=== PATIENT | female | born 2000 | race Two or more races ===

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

== ENCOUNTER 2021-03-14 15:36 | Emergency (ER) | payer MEDICAID ==
[2021-03-14 15:46] VITALS: BP 104/61
[2021-03-14 16:11] LABS: BILIRUBIN,URINE NEGATIVE (NEGATIVE); GLUCOSE, URINE (UA) NEGATIVE (NEGATIVE); KETONES,URINE (UA) NEGATIVE (NEGATIVE); LEUKOCYTE ESTERASE, URINE NEGATIVE (NEGATIVE); NITRITE,URINE NEGATIVE (NEGATIVE); OCCULT BLOOD,URINE LARGE (NEGATIVE); PROTEIN,URINE TRACE mg/dL (NEGATIVE); UROBILINOGEN,URINE 0.2 (NORMAL) E.U./dL (NORMAL)
[2021-03-14 16:14] LABS: CLARITY,URINE CLOUDY (CLEAR); HCG UR QUAL NEGATIVE
[2021-03-14 16:22] LABS: BACTERIA,URINE Rare /HPF (None Seen); EPITHELIAL CELLS,UR RARE Transitional /HPF (<= Few); MUCUS,URINE Few Strands; RBC,URINE TNTC /HPF (0-5); SQUAMOUS EPITHELIAL CELL,UR RARE Squamous (<= Few); WBC,URINE 0-3 /HPF (0-5)
--- NOTE | 2021-03-14 16:30 | ED Physician Documentation ---
History of Present Illness - Stated complaint Stated Complaint: FEMALE - Chief complaint Chief Complaint: Abd Pain - History obtained from History obtained from: Patient, Family (significant other) - Additonal information Additional information: 19-year-old woman presents for evaluation of heavy menstrual bleeding. Patient states that she has a Nexplanon and did not have her period for a year, then started to get it over the past year regularly light. Was once monthly lasting 4 to 7 days. She had her menses about a week ago and then it stopped, with only some mild spotting. She did a clotrimazole treatment for yeast infection which resolved, then began again to have menstrual bleeding that is heavier than usual". Also with mild dysuria but no increased frequency or hematuria. Denies fevers or back pain. Does have mild abdominal cramping consistent with menstrual pain. Review of Systems Constitutional: denies: Fever, Chills GI: reports: Abdominal Pain. denies: Nausea : reports: Dysuria. denies: Frequency Musculoskeletal: denies: Back pain PD PAST MEDICAL HISTORY - Past Medical History Past Medical History: Yes Cardiovascular: None Respiratory: Asthma Neuro: None Endocrine/Autoimmune: None GI: None [employer]INTE[employer]CE [employer]: None : None HEENT: None Psych: Depression, Anxiety, Panic attacks Musculoskeletal: None Derm: Eczema - Past Surgical History Past Surgical History: No - Present Medications Home Medications: Ambulatory Orders Medication Instructions Recorded Confirmed Etonogestrel [Nexplanon] 68 mg SQ ONCE 03/14/21 03/14/21 - Allergies Allergies/Adverse Reactions: Allergies Allergy/AdvReac Type Severity Reaction Status Date / Time No Known Drug Allergies Allergy Verified 03/14/21 15:38 - Social History Does the pt smoke?: No Smoking Status: Never smoker Does the pt drink ETOH?: Yes ETOH Use: Liquor Does the pt have substance abuse?: Yes Substance Use and Type: Marijuana - Immunizations Immunizations are current?: Yes PD ED PE NORMAL - Vitals Vital signs reviewed: Yes - General General: Alert and oriented X 3, No acute distress, Well developed/nourished - HEENT HEENT: Atraumatic, PERRL, EOMI - Neck Neck: Supple, no meningeal sign - Cardiac Cardiac: RRR - Respiratory Respiratory: No respiratory distress, Clear bilaterally - Abdomen Abdomen: Non tender, Non distended - Back Back: No CVA TTP - Derm Derm: Normal color, Warm and dry - Extremities Extremities: No deformity - Neuro Neuro: Alert and oriented X 3 - Psych Psych: Normal mood, Normal affect Results - Vitals Vitals: Vital Signs - 24 hr 03/14/21 15:41 Temperature 36.8 C Heart Rate 88 Respiratory 16 Rate Blood Pressure 104/61 O2 Saturation 98 Oxygen O2 Source Room air - Labs Labs: Laboratory Tests 03/14/21 16:00 Urine Color YELLOW Urine Clarity CLOUDY Urine pH 6.0 Ur Specific [place] 1.025 Urine Protein TRACE Urine Glucose (UA) NEGATIVE Urine Ketones NEGATIVE Urine Occult Blood LARGE H Urine Nitrite NEGATIVE Urine Bilirubin NEGATIVE Urine Urobilinogen 0.2 (NORMAL) Ur Leukocyte Esterase NEGATIVE Urine RBC TNTC H Urine WBC 0-3 Ur Epithelial Cells RARE Transitional Ur Squamous Epith Cells RARE Squamous Urine Bacteria Rare Urine Mucus Few Strands Ur Microscopic Review INDICATED Urine HCG, Qual NEGATIVE PD MEDICAL DECISION MAKING - ED course ED course: 20-year-old presents for evaluation of heavy menstrual.. Urinalysis and test negative. Patient reassured. She declined pelvic exam and would like to follow-up with OB. Return precautions given. Departure - Departure Disposition: 01 Home, Self Care Clinical Impression: Heavy menses Condition: Good Instructions: ED Bleeding Menstrual Heavy Follow-Up: Marley Sharp MD [Provider Admit Priv/Credential] - Comments: You were seen in the emergency department for evaluation of heavy menstrual bleeding. Your urine test showed no infection and you are not . Please follow-up with [facility]. Return to the emergency department if you have any new or worsening symptoms or other concerns.
== END 2021-03-14 16:31 | disposition home or self-care (01) ==
LOC: ED 15:36
DX: N92.0 Excessive and frequent menstruation with regular cycle (principal)
CPT/HCPCS: 81001; 81003; 81025; 99283; 99284

== ENCOUNTER 2022-10-20 17:54 | Emergency (ER) | payer MEDICAID ==
[2022-10-20 18:02] VITALS: BP 105/57
[2022-10-20] MEDS ORDERED: CHERRY SYRUP 10 ML UDC PO ONE (18:20)
[2022-10-20] MEDS ORDERED: DEXAMETHASONE 10 MG/ML VIAL PO STA (18:20)
--- NOTE | 2022-10-20 18:20 | ED Physician Documentation ---
History of Present Illness - Stated complaint Stated Complaint: FEVER,CHILLS,THROAT PX - Chief complaint Chief Complaint: Fever - Additonal information Additional information: 22-year-old female presents emergency department for evaluation of headache body aches chills low-grade temperature elevations as well as sore throat. Symptoms began 2 days ago. She feels like this is tonsillitis as she has had similar in the past. Denies possibility of . Reports that her partner was sick with similar but tested negative for strep and COVID. Review of Systems Constitutional: reports: Fever, Chills, Myalgias, Fatigue Throat: reports: Sore throat Cardiac: reports: Reviewed and negative Respiratory: reports: Reviewed and negative GI: reports: Reviewed and negative Neurologic: reports: Headache PD PAST MEDICAL HISTORY - Past Medical History Past Medical History: Yes Cardiovascular: None Respiratory: Asthma Neuro: None Endocrine/Autoimmune: None GI: None MOUNTED POLICE: None : None HEENT: None Psych: Depression, Anxiety, Panic attacks Musculoskeletal: None Derm: Eczema - Past Surgical History Past Surgical History: No - Present Medications Home Medications: Ambulatory Orders Medication Instructions Recorded Confirmed Penicillin Vk 500 mg PO BID 10 Days #20 tablet 10/20/22 - Allergies Allergies/Adverse Reactions: Allergies Allergy/AdvReac Type Severity Reaction Status Date / Time No Known Drug Allergies Allergy Verified 10/20/22 18:15 - Social History Does the pt smoke?: No Smoking Status: Never smoker Does the pt drink ETOH?: Yes Does the pt have substance abuse?: Yes - Immunizations Immunizations are current?: Yes - POLST Patient has POLST: No PD ED PE NORMAL - General General: Alert and oriented X 3, No acute distress, Well developed/nourished - HEENT HEENT: Atraumatic, Moist mucous membranes. No: Pharynx benign (Beefy red posterior oropharynx with small amount of exudate present on both tonsillar beds. Uvula is midline. No soft palate asymmetry or swelling. Normal phonation. No trismus. No drooling. Full range of motion of the neck) - Neck Neck: Supple, no meningeal sign, No adenopathy - Cardiac Cardiac: RRR, No murmur, No gallop, Strong equal pulses - Respiratory Respiratory: No respiratory distress - Abdomen Abdomen: Normal bowel sounds, Soft, Non tender - Derm Derm: Normal color, Warm and dry, No rash - Extremities Extremities: No deformity, No tenderness to palpate, Normal ROM s pain - Neuro Neuro: Alert and oriented X 3, outside sales consultant 2-12 intact Eye Opening: Spontaneous Motor: Obeys Commands Verbal: Oriented GCS Score: 15 Results - Vitals Vitals: Vital Signs - 24 hr 10/20/22 10/20/22 17:58 18:25 Temperature 38.2 C H Heart Rate 96 Respiratory 18 15 Rate Blood Pressure 105/57 L O2 Saturation 99 Oxygen O2 Source Room air - Labs Labs: Laboratory Tests 10/20/22 18:06 Group A Strep Rapid Negative PD Medical Decision Making - ED course Complexity details: reviewed results, re-evaluated patient, considered differential, d/w patient ED course: 22-year-old female presents to the emergency department for evaluation of several days sore throat, tonsillar exudate, low-grade fever. No nausea or vomiting. No cough. On exam she has a beefy red posterior oropharynx with exudate. There are some tender anterior cervical lymphadenopathy but no cough. She does meet [facility] criteria for empiric antibiotics. Rapid strep however is negative but given the symptomatology and after thoughtful discussion with the patient she has elected to begin starting antibiotics. Patient is discharged home in stable condition. Recommend Motrin and Tylenol for analgesia. She was given a single dose of oral Decadron here in the ER to help with pain and inflammation. Emergent return precautions were discussed for worsening symptoms Departure - Departure Disposition: 01 Home, Self Care Clinical Impression: Pharyngitis Qualifiers: Pharyngitis/tonsillitis etiology: unspecified etiology Qualified Code(s): J02.9 - Acute pharyngitis, unspecified Condition: Stable Record reviewed to determine appropriate education?: Yes Instructions: ED Strep Pharyngitis Poss Prescriptions: Penicillin Vk 500 mg PO BID 10 Days #20 tablet Comments: While you are seen today in the emergency department because you have had several days of sore throat, fever and you now have exudate on your tonsils. Your rapid strep testing is negative but I suspect that a culture would likely be positive for bacterial infection. I would like you to fill the prescription for the penicillin and begin taking it twice daily as directed.'s been sent to the [facility]. You are given a dose of Decadron here in the ER which should help with pain and inflammation over the next several days. In general he can take 500 mg of Tylenol 3-4 times a day or alternate with ibuprofen 600 mg also 3-4 times a day. In general I would expect the medications administered today as well as the antibiotics make her symptoms markedly better over the next 48 to 72 hours. If not improving, you are unable to swallow your secretions, open your mouth fully or you have persistent fevers then you should return to the ER for a second evaluation
[2022-10-20 18:24] LABS: RAPID STREP SCREEN Negative (Negative)
[2022-10-20] MEDS ORDERED: PENICILLIN VK 250 MG TABLET PO STA (18:29)
== END 2022-10-20 18:46 | disposition home or self-care (01) ==
LOC: ED 17:54
DX: J02.9 Acute pharyngitis, unspecified (principal)
CPT/HCPCS: 87070; 87077; 87430; 99283; A9270

== ENCOUNTER 2022-10-24 21:43 | Emergency (ER) | payer MEDICAID ==
--- NOTE | 2022-10-24 22:28 | ED Physician Documentation ---
History of Present Illness - Stated complaint Stated Complaint: TONSIL PAIN - Chief complaint Chief Complaint: Heent - History obtained from History obtained from: Patient - Additonal information Additional information: 22-year-old girl with history of childhood asthma smoker, presents with sore throat, nonproductive cough, throat tightness for the past couple days. She was prescribed penicillin for possible pharyngitis a couple days ago no relief. She states that she was given a medicine and on chart review it appears to be Decadron and that this has been helping her.Denies fever, rhinorrhea, nausea, abdominal pain. Her right lower wisdom tooth is also bothering her. Denies rash PD PAST MEDICAL HISTORY - Past Medical History Cardiovascular: None Respiratory: Asthma Neuro: None Endocrine/Autoimmune: None GI: None CONTENT MANAGER: None : None HEENT: None Psych: Depression, Anxiety, Panic attacks Musculoskeletal: None Derm: Eczema - Past Surgical History Past Surgical History: No - Present Medications Home Medications: Ambulatory Orders Medication Instructions Recorded Confirmed Penicillin Vk 500 mg PO BID 10 Days #20 tablet 10/20/22 Amoxicillin 500 mg PO BID #10 cap 10/24/22 - Allergies Allergies/Adverse Reactions: Allergies Allergy/AdvReac Type Severity Reaction Status Date / Time No Known Drug Allergies Allergy Verified 10/24/22 21:53 - Social History Does the pt smoke?: No Smoking Status: Never smoker Does the pt drink ETOH?: Yes Does the pt have substance abuse?: Yes - Immunizations Immunizations are current?: Yes - POLST Patient has POLST: No PD ED PE NORMAL - Vitals Vital signs reviewed: Yes - General General: Alert and oriented X 3, No acute distress, Well developed/nourished - HEENT HEENT: Atraumatic, PERRL, EOMI, Ears normal, Moist mucous membranes, Other (BL tonsillar enlargement. L tonsillar pillar with 2mm ulcerated tissue. BL LAD. ) - Neck Neck: Supple, no meningeal sign - Cardiac Cardiac: RRR - Respiratory Respiratory: No respiratory distress, Clear bilaterally Results - Vitals Vitals: Vital Signs - 24 hr 10/24/22 21:49 Temperature 36.4 C L Heart Rate 97 Respiratory 16 Rate Blood Pressure 101/71 O2 Saturation 100 Oxygen O2 Source Room air PD Medical Decision Making - ED course ED course: 22yF p/w sore throat, R tooth pain, and nonproductive cough X few days, s/p rx for penicillin on recent ED visit. Patient has erythematous posterior oropharynx on exam as well as tonsillar enlargement and a small, tender ulcer. symptomatic care including lidocaine mouthwash and IM toradol was provided with improvement in pain. Rx for amoxicillin sent to pharmacy. Return precautions given. plan to f/u with pcp. Departure - Departure Clinical Impression: Stomatitis, Sore throat Condition: Good Instructions: Sore Throat Prescriptions: Amoxicillin 500 mg PO BID #10 cap Comments: You were seen in the emergency department for sore throat and received a lidocaine throat gargle treatment as well as a shot containing toradol, an anti- inflammatory pain medicine. Additionally, I changed your prescription from penicillin to amoxicillin. This was sent electronically to your pharmacy. Please follow-up with your primary care provider and return to the emergency department if you have any new or worsening symptoms or other concerns.
[2022-10-24] MEDS: LIDOCAINE VISCOUS 2% 15 ML UDC MM STA (22:29)
[2022-10-24] MEDS: KETOROLAC 30 MG/ML VIAL IM STA (22:30)
[2022-10-24 23:05] VITALS: BP 95/51
== END 2022-10-24 23:05 | disposition home or self-care (01) ==
LOC: ED 21:43
DX: K12.1 Other forms of stomatitis (principal)
CPT/HCPCS: 96372; 99283; 99284

== ENCOUNTER 2023-09-15 08:00 | Outpatient (CLI) | payer MEDICAID ==
[2023-09-15 20:54] LABS: CHLAMYDIA TRACHOMATIS DNA NEGATIVE (NEGATIVE); NEISSERIA GONORRHOEAE DNA NEGATIVE (NEGATIVE); TRICHOMONAS VAGINALIS DNA NEGATIVE (NEGATIVE)
== END 2023-09-15 23:59 | disposition home or self-care (01) ==
LOC: LAB.WC 08:00
PROVIDERS: ATTEND Nurse Practitioner
DX: Z11.3 Encounter for screening for infections with a predominantly sexual mode of transmission (principal)
CPT/HCPCS: 87491; 87591; 87661

== ENCOUNTER 2024-02-25 01:15 | Outpatient (CLI) | payer MEDICAID | END 2024-02-25 23:59 | disposition EMS.NT | LOC: EMS 01:15 | DX: F41.9 Anxiety disorder, unspecified (principal) ==